=== PATIENT | male | born 1985 | race Caucasian/White ===

== ENCOUNTER 2017-07-22 09:23 | Emergency (ER) | payer SELFPAY ==
[2017-07-22 09:35] VITALS: BP 121/88; PULSE 79; TEMP 98.3; BMI 24.7
[2017-07-22] MEDS ORDERED: DIPHTH,PERTUSS(ACELL),TET 0.5 ML DISP.SYRIN IM ONE (10:22)
[2017-07-22] MEDS ORDERED: ACETAMINOPHEN 500 MG TABLET (FP) PO ONE (10:22)
[2017-07-22] MEDS ORDERED: ACETAMINOPHEN 500 MG TABLET (FP) ONE (10:24)
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
== END 2017-07-22 10:49 | disposition home or self-care (01) ==
LOC: JERFT 09:23
PROC: 3E0234Z Introduction of Serum, Toxoid and Vaccine into Muscle, Percutaneous Approach (ICD-10-PCS; principal; 2017-07-22)
DX: S01.512A Laceration without foreign body of oral cavity, initial encounter (principal); S00.03XA Contusion of scalp, initial encounter; S20.219A Contusion of unspecified front wall of thorax, initial encounter; S50.311A Abrasion of right elbow, initial encounter; Y04.2XXA Assault by strike against or bumped into by another person, initial encounter; Y93.89 Activity, other specified; Y92.89 Other specified places as the place of occurrence of the external cause; Y99.8 Other external cause status; Y07.410 Brother, perpetrator of maltreatment and neglect
CPT/HCPCS: 90715; 99281-25